=== PATIENT | female | born 1985 | race Hispanic/Latino ===

== ENCOUNTER 2019-01-14 20:51 | Emergency (ER) | payer OTHER, SELFPAY ==
--- NOTE | 2019-01-14 21:17 | EDPHYS ---
Physician Documentation [facility] Name: Shyla Olea Age: 33 yrs Sex: Female : 1985 Arrival Date: 01/14/2019 Time: 20:53 Bed 24 Private MD: ED Physician Antoni Ridley HPI: 01/14 21:18 This 33 yrs old Female presents to ER via Ambulatory with complaints of Rash. jr8 21:18 The patient's rash thought to be caused by an unknown cause. The rash is located on the jr8 abdomen. The rash can be described as papular, pustular, raised. Onset: The symptoms/episode began/occurred 01/10. Associated signs and symptoms: Pertinent negatives: fever, itching, nausea, swelling of lips, swelling of throat, swelling of tongue, vomiting, wheezing. Severity of symptoms: At their worst the symptoms were mild in the emergency department the symptoms are unchanged. 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 - Social history:: Smoking status: Patient/guardian denies using tobacco. - Ebola Screening: : No symptoms or risks identified at this time. ROS: 21:19 Constitutional: Negative for fever, chills, and weight loss, Eyes: Negative for injury, jr8 pain, redness, and discharge, ENT: Negative for injury, pain, and discharge, Neck: Negative for injury, pain, and swelling, Cardiovascular: Negative for chest pain, palpitations, and edema, Respiratory: Negative for shortness of breath, cough, wheezing, and pleuritic chest pain, Abdomen/GI: Negative for abdominal pain, nausea, vomiting, diarrhea, and constipation, Back: Negative for injury and pain, MS/Extremity: Negative for injury and deformity, Neuro: Negative for headache, weakness, numbness, tingling, and seizure. 21:19 Skin: Positive for pustules, rash, of the abdomen. Exam: 21:19 Constitutional: This is a well developed, well nourished patient who is awake, alert, jr8 and in no acute distress. Head/Face: Normocephalic, atraumatic. Eyes: Pupils equal round and reactive to light, extra-ocular motions intact. Lids and lashes normal. Conjunctiva and sclera are non-icteric and not injected. Cornea within normal limits. Periorbital areas with no swelling, redness, or edema. ENT: Nares patent. No nasal discharge, no septal abnormalities noted. Tympanic membranes are normal and external auditory canals are clear. Oropharynx with no redness, swelling, or masses, exudates, or evidence of obstruction, uvula midline. Mucous membranes moist. Neck: Trachea midline, no thyromegaly or masses palpated, and no cervical lymphadenopathy. Supple, full range of motion without nuchal rigidity, or vertebral point tenderness. No Meningismus. Chest/axilla: Normal chest wall appearance and motion. Nontender with no deformity. No lesions are appreciated. Cardiovascular: Regular rate and rhythm with a normal S1 and S2. No gallops, murmurs, or rubs. Normal PMI, no JVD. No pulse deficits. Respiratory: Lungs have equal breath sounds bilaterally, clear to auscultationNo rales, rhonchi or wheezes noted. No increased work of breathing, no retractions or nasal flaring. Abdomen/GI: Soft, non-tender, with normal bowel sounds. No distension or tympany. No guarding or rebound. No evidence of tenderness throughout. MS/ Extremity: Pulses equal, no cyanosis. Neurovascular intact. Full, normal range of motion. 21:19 Skin: rash a mild rash is noted, rash can be described as nonspecific, papular, pustular, raised, blanchable , on the abdomen. Vital Signs: 21:02 BP 128 / 70; Pulse 70; Resp 16; Temp 97.2(TE); Pulse Ox 98% on R/A; Weight 81.65 kg; lp1 Height 5 ft. 6 in. (167.64 cm); Pain 0/10; 21:02 Body Mass Index 29.05 (81.65 kg, 167.64 cm) lp1 MDM: 21:01 Patient medically screened. 8 21:14 Data reviewed: vital signs, nurses notes, and as a result, I will discharge patient. jr8 Data interpreted: Pulse oximetry: on room air is 100 %. Interpretation: normal. Counseling: I had a detailed discussion with the patient and/or guardian regarding: the historical points, exam findings, and any diagnostic results supporting the discharge/admit diagnosis, to return to the emergency department if symptoms worsen or persist or if there are any questions or concerns that arise at home. ED course: Pt rash is blanchable, small papules, pt is non-toxic without constitutional symptoms. Will trial abx and steroids and have pt FU with derm. Administered Medications: No medications were administered Disposition: 22:20 Co-signature as Attending Physician, Antoni Ridley MD. rn Disposition: 01/14/19 21:17 Discharged to Home. Impression: Rash and other nonspecific skin eruption. - Condition is Stable. - Discharge Instructions: Rash, Rash, Cemk-se-Ounm. - Prescriptions for Medrol (Jim) 4 mg Oral Tablets, Dose Pack - take 1 tablet by ORAL route as directed - follow package instructions; 1 packet. Bactrim DS 800- 160 mg Oral Tablet - take 1 tablet by ORAL route every 12 hours for 7 days; 14 tablet. - Medication Reconciliation Form, Thank You Letter, Antibiotic Education form. - Follow up: Private Physician; When: 5 - 6 days; Reason: Recheck today's complaints, Re-evaluation by your physician. - Problem is new. - Symptoms are unchanged. Signatures: Antoni Ridley MD MD rn Pena, Laura RN RN lp1 Marcin Carvajal PA PA jr8 Rashid Heart RN RN rv Corrections: (The following items were deleted from the chart) 21:37 21:17 01/14/2019 21:17 Discharged to Home. Impression: Rash and other nonspecific skin rv eruption. Condition is Stable. Forms are Medication Reconciliation Form, Thank You Letter, Antibiotic Education, Prescription Opioid Use. Follow up: Private Physician; When: 5 - 6 days; Reason: Recheck today's complaints, Re-evaluation by your physician. Problem is new. Symptoms are unchanged. jr8
--- NOTE | 2019-01-14 21:17 | ER ---
Nurse's Notes [facility] Name: Shyla Olea Age: 33 yrs Sex: Female : 1985 Arrival Date: 01/14/2019 Time: 20:53 Bed 24 Private MD: Diagnosis: Rash and other nonspecific skin eruption Presentation: 01/14 21:01 Presenting complaint: Patient states: Rash to general body, began Sunday on abdomen and lp1 has spread; States burning sensation all over; no relief with Benadryl. Transition of care: patient was not received from another setting of care. Onset of symptoms was January 14, 2019. Risk Assessment: Do you want to hurt yourself or someone else? Patient reports no desire to harm self or others. Initial Sepsis Screen: Does the patient meet any 2 criteria? No. Patient's initial sepsis screen is negative. Does the patient have a suspected source of infection? No. Patient's initial sepsis screen is negative. Care prior to arrival: None. 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 - Social history:: Smoking status: Patient/guardian denies using tobacco. - Ebola Screening: : No symptoms or risks identified at this time. Screenin:03 Abuse screen: Denies threats or abuse. Denies injuries from another. Nutritional lp1 screening: No deficits noted. Tuberculosis screening: No symptoms or risk factors identified. Fall Risk None identified. Assessment: 21:36 General: Appears in no apparent distress. comfortable, Behavior is calm, cooperative. rv Pain: Denies pain. Neuro: Level of Consciousness is awake, alert, obeys commands, Oriented to person, place, time, situation. Cardiovascular: Patient's skin is warm and dry. Respiratory: Airway is patent. GI: No signs and/or symptoms were reported involving the gastrointestinal system. : No signs and/or symptoms were reported regarding the genitourinary system. EENT: No signs and/or symptoms were reported regarding the EENT system. Derm: Rash noted that is red, on abdomen. Vital Signs: 21:02 BP 128 / 70; Pulse 70; Resp 16; Temp 97.2(TE); Pulse Ox 98% on R/A; Weight 81.65 kg; lp1 Height 5 ft. 6 in. (167.64 cm); Pain 0/10; 21:02 Body Mass Index 29.05 (81.65 kg, 167.64 cm) lp1 ED Course: 20:53 Patient arrived in ED. cl3 21:01 Marcin Carvajal PA is PHCP. jr8 21:01 Antoni Ridley MD is Attending Physician. jr8 21:02 Triage completed. lp1 21:02 Arm band placed on. lp1 21:03 Patient has correct armband on for positive identification. lp1 21:35 Rashid Heart RN is Primary Nurse. rv 21:36 No provider procedures requiring assistance completed. Patient did not have IV access rv during this emergency room visit. Administered Medications: No medications were administered Outcome: 21:17 Discharge ordered by . jr8 21:37 Discharged to home ambulatory. rv 21:37 Condition: good 21:37 Discharge instructions given to patient, Instructed on discharge instructions, follow up and referral plans. medication usage, Demonstrated understanding of instructions, follow-up care, medications, Prescriptions given X 2. 21:37 Patient left the ED. rv Signatures: Jania Coffey RN RN lp1 Marcin Carvajal PA PA jr8 Rashid Heart RN RN rv Lewis, Charde cl3
[2019-01-14 23:59] VITALS: BP 128/70; TEMP 97.2; O2SAT 98
== END 2019-01-14 21:37 | disposition home or self-care (01) ==
LOC: ER 20:51
DX: R21 Rash and other nonspecific skin eruption (principal); Z88.1 Allergy status to other antibiotic agents
CPT/HCPCS: 99282

== ENCOUNTER 2019-02-22 00:07 | Emergency (ER) | payer OTHER ==
--- OUTSIDE RECORDS SUMMARY | 2019-02-22 00:10 | XMS REPORT ---
:1985 [facility] Address [address] [place] [address] Dr. Stephens [address] [place] [id number] Care Team Providers Name Role Phone Unavailable Unavailable Unavailable Problems This patient has no known problems. Allergies, Adverse Reactions, Alerts This patient has no known allergies or adverse reactions. Medications This patient has no known medications.
[2019-02-22 00:49] LABS: Basophils % 0.5 % (0-1.3); Lymphocytes % 23.9 % (15.3-44.8); MPV 9.9 fL (7.6-11.3)
[2019-02-22 00:55] LABS: Urine Blood 3+ (NEG); Urine Glucose NEGATIVE (NEG); Urine Protein 2+ (NEG); Urine pH 5.5 (5.0-7.0)
[2019-02-22 00:56] LABS: Urine Bacteria >50 /HPF (<20); Urine Culture Reflex Order REFLEXED; Urine RBC TNTC /HPF (NONE SEEN)
[2019-02-22 01:04] LABS: Potassium 3.7 mmol/L (3.5-5.1)
[2019-02-22] MEDS ORDERED: NA CHLORIDE 0.9% 1,000 ML ONE (02:01)
[2019-02-22] MEDS ORDERED: CEFTRIAXONE/SWI 1gm 1 GM/10 ML SYR ONE (02:01)
--- NOTE | 2019-02-22 02:27 | ER ---
Nurse's Notes [facility] Name: Shyla Olea Age: 33 yrs Sex: Female : 1985 Arrival Date: 02/22/2019 Time: 00:12 Bed 5 Private MD: Diagnosis: Urinary tract infection, site not specified Presentation: 02/22 00:23 Presenting complaint: Patient states: she has had UTI x 3 weeks and now has blood in bb her urine with right lower back pain. Transition of care: patient was not received from another setting of care. Onset of symptoms was December 2018. Risk Assessment: Do you want to hurt yourself or someone else? Patient reports no desire to harm self or others. Initial Sepsis Screen: Does the patient meet any 2 criteria? No. Patient's initial sepsis screen is negative. Does the patient have a suspected source of infection? No. Patient's initial sepsis screen is negative. Care prior to arrival: None. 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 - Social history:: Smoking status: Patient/guardian denies using tobacco. - Ebola Screening: : No symptoms or risks identified at this time. Screenin:30 Abuse screen: Denies threats or abuse. Nutritional screening: No deficits noted. jd3 Tuberculosis screening: No symptoms or risk factors identified. Fall Risk Ambulatory Aid- None/Bed Rest/Nurse Assist (0 pts). Gait- Normal/Bed Rest/Wheelchair (0 pts) Mental Status- Oriented to own ability (0 pts). Total Burciaga Fall Scale indicates No Risk (0-24 pts). Assessment: 00:27 General: Appears in no apparent distress. uncomfortable, Behavior is calm, cooperative, jd3 appropriate for age. Pain: Complains of pain in groin Quality of pain is described as burning. Neuro: Level of Consciousness is awake, alert, obeys commands, Oriented to person, place, time, situation. Cardiovascular: Capillary refill Patient's skin is warm and dry. Respiratory: Airway is patent Respiratory effort is even, unlabored, Respiratory pattern is regular, symmetrical. GI: No signs and/or symptoms were reported involving the gastrointestinal system. : Reports burning with urination, blood noted in urine. EENT: No signs and/or symptoms were reported regarding the EENT system. Derm: Skin is intact, Skin is dry, Skin is normal, Skin temperature is warm. Musculoskeletal: Circulation, motion, and sensation intact. Range of motion: intact in all extremities. 01:26 Reassessment: Patient appears in no apparent distress at this time. No changes from jd3 previously documented assessment. Patient and/or family updated on plan of care and expected duration. Pain level reassessed. Patient is alert, oriented x 3, equal unlabored respirations, skin warm/dry/pink. 02:38 Reassessment: Patient and/or family updated on plan of care and expected duration. Pain ea level reassessed. Patient is alert, oriented x 3, equal unlabored respirations, skin warm/dry/pink. Discharge instruction given to patient, verbalized the understanding of instruction. Pt left ED ambulatory tolerating well. Vital Signs: 00:31 BP 138 / 79; Pulse 62; Resp 16 S; Temp 98(O); Pulse Ox 100% on R/A; Weight 86.18 kg bb (R); Height 5 ft. 6 in. (167.64 cm) (R); Pain 5/10; 02:30 BP 114 / 77; Pulse 76; Resp 18; Temp 97.6; Pulse Ox 100% on R/A; ea 00:31 Body Mass Index 30.67 (86.18 kg, 167.64 cm) bb ED Course: 00:12 Patient arrived in ED. cf2 00:15 Reny Martinez FNP-C is PHCP. kb 00:15 Candido Malagon MD is Attending Physician. kb 00:24 Triage completed. bb 00:27 Ryan Rod RN is Primary Nurse. jd3 00:30 Patient has correct armband on for positive identification. Bed in low position. Call jd3 light in reach. Side rails up X 1. Adult w/ patient. 00:31 Arm band placed on. jd3 00:46 Inserted saline lock: 20 gauge in right antecubital area, using aseptic technique. ea 01:55 CT Abd/Pelvis - IV Contrast Only In Process Unspecified. EDMS 02:38 No provider procedures requiring assistance completed. IV discontinued, intact, ea bleeding controlled, No redness/swelling at site. Pressure dressing applied. Administered Medications: 02:06 Drug: Rocephin 1 grams Route: IV; Rate: calculated rate; Site: right antecubital; jd3 02:15 Follow up: Response: No adverse reaction; IV Status: Completed infusion ea 02:06 Drug: NS 0.9% 1000 ml Route: IV; Rate: 1000 ml; Site: right antecubital; jd3 02:30 Follow up: Response: No adverse reaction; IV Status: Completed infusion; IV Intake: ea 1000ml Intake: 02:30 IV: 1000ml; Total: 1000ml. ea Outcome: 02:26 Discharge ordered by . kb 02:38 Discharged to home ambulatory, with family. ea 02:38 Condition: stable 02:38 Discharge instructions given to patient, Instructed on discharge instructions, follow up and referral plans. medication usage, Demonstrated understanding of instructions, follow-up care, medications, Prescriptions given X 1. 02:41 Patient left the ED. ea Signatures: Dispatcher [employer] EDMS Reny Martinez, WATCH REPAIR TECHNICIAN-C WATCH REPAIR TECHNICIAN-Jaimie Sanders, RN RN Katherin Gerber RN RN ea Davies, Jonathon, RN RN jd3 Frazier, Celesta cf2
--- NOTE | 2019-02-22 02:27 | EDPHYS ---
Physician Documentation [facility] Name: Shyla Olea Age: 33 yrs Sex: Female : 1985 Arrival Date: 02/22/2019 Time: 00:12 Bed 5 Private MD: ED Physician Candido Malagon HPI: 02/22 01:03 This 33 yrs old Female presents to ER via Ambulatory with complaints of kb Urinary Problem. 01:03 The patient presents with urinary symptoms, dysuria, frequency, hematuria. Onset: The kb symptoms/episode began/occurred 3 week(s) ago. Modifying factors: The symptoms are alleviated by nothing, the symptoms are aggravated by urinating. Associated signs and symptoms: Pertinent positives: dysuria, fever, hematuria, urinary frequency. Severity of symptoms: At their worst the symptoms were moderate, in the emergency department the symptoms are unchanged. The patient has experienced similar episodes in the past. The patient has not recently seen a physician. 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 - Social history:: Smoking status: Patient/guardian denies using tobacco. - Ebola Screening: : No symptoms or risks identified at this time. ROS: 01:02 ENT: Negative for injury, pain, and discharge, Neck: Negative for injury, pain, and kb swelling, Cardiovascular: Negative for chest pain, palpitations, and edema, Respiratory: Negative for shortness of breath, cough, wheezing, and pleuritic chest pain, Abdomen/GI: Negative for abdominal pain, nausea, vomiting, diarrhea, and constipation, Back: Negative for injury and pain, MS/Extremity: Negative for injury and deformity, Skin: Negative for injury, rash, and discoloration, Neuro: Negative for headache, weakness, numbness, tingling, and seizure. 01:02 Constitutional: Positive for fever. 01:02 : Positive for urinary symptoms, flank pain, urinary frequency, hematuria, burning with urination. Exam: 01:02 Constitutional: This is a well developed, well nourished patient who is awake, alert, kb and in no acute distress. Head/Face: Normocephalic, atraumatic. ENT: Nares patent. No nasal discharge, no septal abnormalities noted. Tympanic membranes are normal and external auditory canals are clear. Oropharynx with no redness, swelling, or masses, exudates, or evidence of obstruction, uvula midline. Mucous membranes moist. Neck: Trachea midline, no thyromegaly or masses palpated, and no cervical lymphadenopathy. Supple, full range of motion without nuchal rigidity, or vertebral point tenderness. No Meningismus. Chest/axilla: Normal chest wall appearance and motion. Nontender with no deformity. No lesions are appreciated. Cardiovascular: Regular rate and rhythm with a normal S1 and S2. No gallops, murmurs, or rubs. Normal PMI, no JVD. No pulse deficits. Respiratory: Lungs have equal breath sounds bilaterally, clear to auscultation and percussion. No rales, rhonchi or wheezes noted. No increased work of breathing, no retractions or nasal flaring. Abdomen/GI: Soft, non-tender, with normal bowel sounds. No distension or tympany. No guarding or rebound. No evidence of tenderness throughout. Skin: Warm, dry with normal turgor. Normal color with no rashes, no lesions, and no evidence of cellulitis. MS/ Extremity: Pulses equal, no cyanosis. Neurovascular intact. Full, normal range of motion. Neuro: Awake and alert, GCS 15, oriented to person, place, time, and situation. Cranial nerves II-XII grossly intact. Motor strength 5/5 in all extremities. Sensory grossly intact. Cerebellar exam normal. Normal gait. 01:02 Back: CVA tenderness, that is moderate, is noted on the right. Vital Signs: 00:31 BP 138 / 79; Pulse 62; Resp 16 S; Temp 98(O); Pulse Ox 100% on R/A; Weight 86.18 kg bb (R); Height 5 ft. 6 in. (167.64 cm) (R); Pain 5/10; 02:30 BP 114 / 77; Pulse 76; Resp 18; Temp 97.6; Pulse Ox 100% on R/A; ea 00:31 Body Mass Index 30.67 (86.18 kg, 167.64 cm) bb MDM: 00:19 Patient medically screened. kb 01:02 Data reviewed: vital signs, nurses notes. Data interpreted: Pulse oximetry: on room air kb is 100 %. Interpretation: normal. 02:26 Counseling: I had a detailed discussion with the patient and/or guardian regarding: the kb historical points, exam findings, and any diagnostic results supporting the discharge/admit diagnosis, lab results, radiology results, the need for outpatient follow up, a family practitioner, to return to the emergency department if symptoms worsen or persist or if there are any questions or concerns that arise at home. 02/22 00:27 Order name: CBC with Diff; Complete Time: 00:54 kb 02/22 00:27 Order name: Basic Metabolic Panel; Complete Time: 01:06 kb 02/22 00:27 Order name: Urine Microscopic Only; Complete Time: 00:58 kb 02/22 00:48 Order name: Urine Dipstick--Ancillary (enter results); Complete Time: 00:58 ar5 02/22 00:48 Order name: Urine --Ancillary (enter results); Complete Time: 00:58 ar5 02/22 00:58 Order name: Urine Culture EDMS 02/22 00:27 Order name: IV Start; Complete Time: 00:46 kb 02/22 00:27 Order name: Urine Test (obtain specimen); Complete Time: 01:26 kb 02/22 00:27 Order name: Urine Dipstick-Ancillary (obtain specimen); Complete Time: 00:46 kb 02/22 00:27 Order name: CT Abd/Pelvis - IV Contrast Only kb Administered Medications: 02:06 Drug: Rocephin 1 grams Route: IV; Rate: calculated rate; Site: right antecubital; jd3 02:15 Follow up: Response: No adverse reaction; IV Status: Completed infusion ea 02:06 Drug: NS 0.9% 1000 ml Route: IV; Rate: 1000 ml; Site: right antecubital; jd3 02:30 Follow up: Response: No adverse reaction; IV Status: Completed infusion; IV Intake: ea 1000ml Disposition: 09:01 Co-signature as Attending Physician, Candido Malagon MD I agree with the assessment and miguel ángel plan of care. Disposition: 02/22/19 02:26 Discharged to Home. Impression: Urinary tract infection, site not specified. - Condition is Stable. - Discharge Instructions: Urinary Tract Infection, Adult, [id number]. - Prescriptions for Macrobid 100 mg Oral Capsule - take 1 capsule by ORAL route every 12 hours for 10 days; 20 capsule. - Medication Reconciliation Form, Thank You Letter, Antibiotic Education, Prescription Opioid Use form. - Follow up: Emergency Department; When: As needed; Reason: Worsening of condition. Follow up: Private Physician; When: 2 - 3 days; Reason: Recheck today's complaints, Continuance of care, Re-evaluation by your physician. Signatures: Dispatcher [employer] EDReny Waggoner, DIRECTOR FEDERAL-C DIRECTOR FEDERAL-Ckb Candido Malagon MD MD cha Ballard, Brenda, RN RN Katherin Gerber, RN RN Ryan Pascal RN RN jd3 Corrections: (The following items were deleted from the chart) 02:41 02:26 02/22/2019 02:26 Discharged to Home. Impression: Urinary tract infection, site ea not specified. Condition is Stable. Forms are Medication Reconciliation Form, Thank You Letter, Antibiotic Education, Prescription Opioid Use. Follow up: Emergency Department; When: As needed; Reason: Worsening of condition. Follow up: Private Physician; When: 2 - 3 days; Reason: Recheck today's complaints, Continuance of care, Re-evaluation by your physician. kb
[2019-02-22 03:01] VITALS: O2SAT 100
[2019-02-22 03:03] VITALS: BP 114/77; TEMP 97.6
--- NOTE | 2019-02-24 14:01 | RAD REPORT ---
EXAM DESCRIPTION: CT Abdomen and Pelvis With Intravenous Contrast CLINICAL HISTORY: The patient is 33 years old and is Female; right lower back pain TECHNIQUE: Axial computed tomography images of the abdomen and pelvis with intravenous contrast. S agittal and coronal reformatted images were created and reviewed. This CT exam was performed using one or more of the following dose reduction techniques: automated exposure control, adjustment of t he mA and/or kV according to patient size, and/or use of iterative reconstruction technique. COMPARISON: No relevant prior studies available. FINDINGS: LUNG BASES: Unremarkable. No mass. No consolidation. ABDOMEN: LIVER: Unremarkable. No mass. GALLBLADDER AND BILE DUCTS: No calcified stones. No ductal dilation. PANCREAS: No ductal dilation. No mass. SPLEEN: Unremarkable. ADRENALS: Unremarkable. No mass. KIDNEYS AND URETERS: Unremarkable. The kidneys enhance symmetrically. No obstructing renal or ur eteral calculus is seen. No hydronephrosis or hydroureter. No perinephric fluid or stranding. STOMACH AND BOWEL: The stomach is minimally fluid filled. The small bowel is relatively normal i n caliber. Stool is present throughout colon. There is no mucosal thickening or evidence of bowel obs truction. PELVIS: APPENDIX: The appendix is normal in caliber without surrounding inflammation. BLADDER: The bladder is not well distended. REPRODUCTIVE: Evidence of tubal ligation is noted. A dominant 2.4 cm left ovarian cyst is pres ent. No follow-up imaging is recommended. The uterus and right ovary are normal. ABDOMEN and PELVIS: INTRAPERITONEAL SPACE: A small amount of free fluid is present within the pelvis which is likely physiologic. No free air. BONES/JOINTS: No acute fracture. SOFT TISSUES: The soft tissues are normal. VASCULATURE: Unremarkable. No abdominal aortic aneurysm. LYMPH NODES: Unremarkable. No enlarged lymph nodes. IMPRESSION: No acute findings on this contrasted CT of the abdomen and pelvis to explain the patient 's symptoms. Electronically signed by: Zo Longoria MD 02/22/2019 2:15 AM DRYWALL FOREMAN Due to temporary technical issues with the PACS/Fluency reporting system, reports are being signed by the in house radiologist as a courtesy to ensure prompt reporting. The interpreting radiologist is f ully responsible for the content of the report.
== END 2019-02-22 02:41 | disposition home or self-care (01) ==
LOC: ER 00:07
DX: N39.0 Urinary tract infection, site not specified (principal); Z88.1 Allergy status to other antibiotic agents
CPT/HCPCS: 87088; 85025; 87086; 80048; 36415; 81025; 74177; 96374; 99284; Q9967; J0696; J7030; 81003; 81015

== ENCOUNTER 2020-02-04 07:53 | Emergency (ER) | payer OTHER ==
--- OUTSIDE RECORDS SUMMARY | 2020-02-04 07:55 | XMS REPORT | Clinical Summary ---
:1985 Demographics Phone Unavailable Preferred Language Unknown Marital Status Unknown Anabaptism Affiliation Unknown Race Unknown Ethnic Group Unknown Author Organization [facility] Address [address] [place] [address] Care Team Providers Name Role Phone Unavailable Primary Care Provider Unavailable Allergies Active Allergy Reactions Severity Noted Date Comments Amoxicillin-Pot Clavulanate Hives 02/17/2014 Medications No known medications Active Problems Not on file Social History Tobacco Use Types Packs/Day Years Used Date Never Smoker Alcohol Use Drinks/Week oz/Week Comments No Sex Assigned at Date Recorded Not on file Last Filed Vital Signs Not on file Plan of Treatment Not on file Results Not on fileafter 02/03/2019
--- OUTSIDE RECORDS SUMMARY | 2020-02-04 07:55 | XMS REPORT | Continuity of Care Document ---
:1985 Author Organization [facility] t Address [facility] [place] [address] Care Team Providers Name Role Phone Unavailable Unavailable Unavailable Problems This patient has no known problems. Allergies, Adverse Reactions, Alerts Allergy Allergy Status Severity Reaction(s) Onset Inactive Treating Comm ents Source Name Type Date Date Clinician Amoxicil Drug Active Hives 2013-04 [facility] grecia-Pot Allergy 04-19 [facility] Social History Social Habit Start Date Stop Date Quantity Comments Source Sex Assigned At [facility] Alcohol intake 2014-02-17 2014-02-17 Current [facility] es - 00:00:00 00:00:00 non-drinker of Medical Ce nter alcohol (finding) Smoking Status Start Date Stop Date Source Never smoker [facility] Medications This patient has no known medications. Procedures This patient has no known procedures. Results This patient has no known results.
[2020-02-04] MEDS ORDERED: MEPERIDINE HCL 25 MG/ML SYR ONE (08:55)
[2020-02-04] MEDS ORDERED: ONDANSETRON 4 MG/2 ML VIAL ONE (08:55)
[2020-02-04] MEDS ORDERED: NA CHLORIDE 0.9% 1,000 ML ONE (08:56)
[2020-02-04] MEDS ORDERED: dexAMETHasone 4 MG/ML VIAL ONE (08:56)
--- NOTE | 2020-02-04 09:25 | ER ---
Nurse's Notes [facility] Name: Shyla Olea Age: 34 yrs Sex: Female : 1985 Arrival Date: 02/04/2020 Time: 07:55 Bed 19 Private MD: Pedro Haywood R Diagnosis: Migraine Presentation: 02/03 08:05 Chief complaint: Patient states: Migraine x 2 days. Coronavirus screen: Client denies ss travel out of the [place] in the last 14 days. Ebola Screen: Patient denies exposure to infectious person. Patient denies travel to an Ebola-affected area in the 21 days before illness onset. Initial Sepsis Screen: Does the patient meet any 2 criteria? No. Patient's initial sepsis screen is negative. Does the patient have a suspected source of infection? No. Patient's initial sepsis screen is negative. Risk Assessment: Do you want to hurt yourself or someone else? Patient reports no desire to harm self or others. Onset of symptoms was February 02, 2020. 08:05 Method Of Arrival: Ambulatory ss 08:05 Acuity: BILL 3 ss Triage Assessment: 08:05 Headache History: The patient has had previous headaches and this one is similar to bp previous episodes. General: Appears in no apparent distress. uncomfortable, Behavior is cooperative, appropriate for age, anxious. Pain: Complains of pain in right congregation and right side of forehead Also complains of photophobia. EENT: No deficits noted. Neuro: Level of Consciousness is awake, alert, obeys commands, Oriented to Appropriate for age. Cardiovascular: No deficits noted. Respiratory: No deficits noted. GI: No signs and/or symptoms were reported involving the gastrointestinal system. : No signs and/or symptoms were reported regarding the genitourinary system. Derm: No deficits noted. Musculoskeletal: No deficits noted. 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 - Social history:: Smoking status: Patient denies any tobacco usage or history of. - Family history:: not pertinent. - Hospitalizations: : No recent hospitalization is reported. Screenin:08 Abuse screen: Denies threats or abuse. Denies injuries from another. Nutritional ss screening: No deficits noted. Tuberculosis screening: Never had TB. Fall Risk None identified. Assessment: 08:08 General: Appears uncomfortable, Behavior is calm, cooperative, Denies fever, feeling ss ill, fatigue, chills. Pain: Complains of pain in right side of forehead and right congregation Pain currently is 7 out of 10 on a pain scale. Quality of pain is described as aching, throbbing, Pain began 2-3 days ago. Is continuous. Neuro: Level of Consciousness is awake, alert, obeys commands, Oriented to person, place, time, situation, Speech is normal, Facial symmetry appears normal, Pupils are PERRLA. Neuro: Reports difficulty focusing at times. . Cardiovascular: Capillary refill < 3 seconds is brisk in bilateral fingers. Respiratory: Airway is patent Respiratory effort is even, unlabored, Respiratory pattern is regular, symmetrical. GI: Reports intermittent nausea x 2 days. : No signs and/or symptoms were reported regarding the genitourinary system. Derm: Skin is intact, is healthy with good turgor, Skin is dry, Skin is pink, warm \T\ dry. normal. Musculoskeletal: Circulation, motion, and sensation intact. Range of motion: intact in all extremities. 08:30 Reassessment: RECD REPORT FROM CANDY DURAND. 34YO HF P/W POLO, H/O MIGRAINES. PT bp NON-COMPLIANT WITH NEURO F/U. Neuro: Level of Consciousness is awake, alert, obeys commands, Oriented to Appropriate for age Speech is normal, Facial symmetry appears normal, Reports headache in right frontal area, photophobia. 09:42 Reassessment: PT D/C HOME AMBULATORY WITH FAMILY, DX WITH MIGRAINE POLO Patient states bp feeling better. Patient states symptoms have improved. Vital Signs: 08:05 BP 116 / 81; Pulse 76; Resp 14; Temp 97.6(TE); Pulse Ox 99% on R/A; Weight 89.81 kg; ss Height 5 ft. 6 in. (167.64 cm); Pain 7/10; 09:00 BP 98 / 67; Pulse 77; Resp 17; Pulse Ox 96% ; bp 09:33 BP 100 / 58; Pulse 61; Resp 16; Pulse Ox 97% ; bp 08:05 Body Mass Index 31.96 (89.81 kg, 167.64 cm) ss Spooner Coma Score: 09:23 Eye Response: spontaneous(4). Verbal Response: oriented(5). Motor Response: obeys rn commands(6). Total: 15. ED Course: 07:55 Patient arrived in ED. as 07:55 Pedro Haywood MD is Private Physician. as 08:06 Triage completed. ss 08:08 Arm band placed on left wrist. ss 08:08 Patient has correct armband on for positive identification. Bed in low position. Call ss light in reach. 08:10 Antoni Ridley MD is Attending Physician. rn 08:38 Keo Morris RN is Primary Nurse. bp 08:38 Keo Morris RN is Primary Nurse. bp 08:45 Inserted saline lock: 22 gauge in right antecubital area, using aseptic technique. bp 09:24 Julian Grover MD is Referral Physician. rn 09:42 No provider procedures requiring assistance completed. IV discontinued, intact, bp bleeding controlled, No redness/swelling at site. Pressure dressing applied. Administered Medications: 08:45 Drug: NS 0.9% 1000 ml Route: IV; Rate: 1000 ml; Site: right antecubital; bp 09:43 Follow up: IV Status: Completed infusion; IV Intake: 1000ml bp 08:45 Drug: Decadron - Dexamethasone 10 mg Route: IVP; Site: right antecubital; bp 09:43 Follow up: Response: No adverse reaction; Pain is decreased bp 08:45 Drug: Demerol 25 mg Route: IVP; Site: right antecubital; bp 09:43 Follow up: Response: No adverse reaction; Pain is decreased bp 08:45 Drug: Zofran (Ondansetron) 4 mg Route: IVP; Site: right antecubital; bp 09:44 Follow up: Response: No adverse reaction; Pain is decreased bp Intake: 09:43 IV: 1000ml; Total: 1000ml. bp Outcome: 09:24 Discharge ordered by . rn 09:42 Discharged to home ambulatory, with family. bp 09:42 Condition: stable 09:42 Discharge instructions given to patient, Instructed on discharge instructions, follow up and referral plans. medication usage, Demonstrated understanding of instructions, follow-up care, medications, Prescriptions given X 2. 09:44 Patient left the ED. bp Signatures: Amrita Leon Roman, MD MD rn Candy Flowers RN RN ss Keo Morris RN RN bp
--- NOTE | 2020-02-04 09:25 | EDPHYS ---
Physician Documentation [facility] Name: Shyla Olea Age: 34 yrs Sex: Female : 1985 Arrival Date: 02/04/2020 Time: 07:55 Bed 19 Private MD: Pedro Haywood R ED Physician Antoni Ridley HPI: 02/03 08:21 This 34 yrs old Female presents to ER via Ambulatory with complaints of rn Headache. 08:21 The patient complains of pain to the top of head. The patient describes the headache as rn aching. Onset: The symptoms/episode began/occurred 2 day(s) ago. Severity of symptoms: At its worst the pain was moderate, "similar to past headaches". Headache History: The patient has had previous headaches and this one is similar to previous episodes. The symptoms are alleviated by nothing. the symptoms are aggravated by lights, noise, stress. The patient has experienced similar episodes in the past. Reports headache, migraine, similar to previous migraines, sensitive to light/sounds/stress. Tried OTC meds and not helping. No atypical or irregular symptoms for her compared to previousmigraines. No fever/neck stiffness.. 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 - Social history:: Smoking status: Patient denies any tobacco usage or history of. - Family history:: not pertinent. - Hospitalizations: : No recent hospitalization is reported. ROS: 08:21 Constitutional: Negative for fever, chills, and weight loss, Eyes: Negative for injury, rn pain, redness, and discharge, Neck: Negative for injury, pain, and swelling, Cardiovascular: Negative for chest pain, palpitations, and edema, Respiratory: Negative for shortness of breath, cough, wheezing, and pleuritic chest pain, Abdomen/GI: Negative for abdominal pain, diarrhea, and constipation, MS/Extremity: Negative for injury and deformity, Skin: Negative for injury, rash, and discoloration, Neuro: Negative for weakness, numbness, tingling, and seizure. Exam: 08:21 Constitutional: This is a well developed, well nourished patient who is awake, alert, rn womens health to room without assistance or difficulty Head/Face: Normocephalic, atraumatic. Neck: Supple, full range of motion without nuchal rigidity. No Meningismus. Cardiovascular: Regular rate and rhythm. No pulse deficits. Respiratory: No increased work of breathing, no retractions or nasal flaring. Abdomen/GI: soft, non-tender Skin: Warm, dry MS/ Extremity: Pulses equal, no cyanosis. Neurovascular intact. Full, normal range of motion. Equal circumference. Neuro: Awake and alert, GCS 15 Vital Signs: 08:05 BP 116 / 81; Pulse 76; Resp 14; Temp 97.6(TE); Pulse Ox 99% on R/A; Weight 89.81 kg; ss Height 5 ft. 6 in. (167.64 cm); Pain 7/10; 09:00 BP 98 / 67; Pulse 77; Resp 17; Pulse Ox 96% ; bp 09:33 BP 100 / 58; Pulse 61; Resp 16; Pulse Ox 97% ; bp 08:05 Body Mass Index 31.96 (89.81 kg, 167.64 cm) ss Surinder Coma Score: 09:23 Eye Response: spontaneous(4). Verbal Response: oriented(5). Motor Response: obeys rn commands(6). Total: 15. MDM: 08:11 Patient medically screened. rn 09:23 Differential diagnosis: migraine, tension headache, vasomotor headache. Data reviewed: rn vital signs, nurses notes, old medical records, and as a result, I will discharge patient. Counseling: I had a detailed discussion with the patient and/or guardian regarding: the historical points, exam findings, and any diagnostic results supporting the discharge/admit diagnosis, the need for outpatient follow up, to return to the emergency department if symptoms worsen or persist or if there are any questions or concerns that arise at home. Response to treatment: the patient's symptoms have markedly improved after treatment, patient is well hydrated. sleeping comfortably, stable vitals, mother reports "feels much better". , and as a result, I will discharge patient. Special discussion: I discussed with the patient/guardian in detail that at this point there is no indication for admission to the hospital. It is understood, however, that if the symptoms persist or worsen the patient needs to return immediately for re-evaluation. Based on the history and exam findings, there is no indication for further emergent testing or inpatient evaluation. I discussed with the patient/guardian the need to see the neurologist for further evaluation of the symptoms. 02/03 08:21 Order name: IV Start; Complete Time: 08:57 rn Administered Medications: 08:45 Drug: NS 0.9% 1000 ml Route: IV; Rate: 1000 ml; Site: right antecubital; bp 09:43 Follow up: IV Status: Completed infusion; IV Intake: 1000ml bp 08:45 Drug: Decadron - Dexamethasone 10 mg Route: IVP; Site: right antecubital; bp 09:43 Follow up: Response: No adverse reaction; Pain is decreased bp 08:45 Drug: Demerol 25 mg Route: IVP; Site: right antecubital; bp 09:43 Follow up: Response: No adverse reaction; Pain is decreased bp 08:45 Drug: Zofran (Ondansetron) 4 mg Route: IVP; Site: right antecubital; bp 09:44 Follow up: Response: No adverse reaction; Pain is decreased bp Disposition: 02/04/20 09:24 Discharged to Home. Impression: Migraine. - Condition is Stable. - Discharge Instructions: Migraine Headache. - Prescriptions for Zofran ODT 4 mg Oral tablet,disintegrating - place 1 tablet by TRANSLINGUAL route every 8 hours As needed; 15 tablet. Tramadol 50 mg Oral Tablet - take 1 tablet by ORAL route every 8 hours as needed; 12 tablet. - Medication Reconciliation Form, Thank You Letter, Antibiotic Education, Prescription Opioid Use, Work release form form. - Follow up: Julian Grover MD; When: As needed; Reason: Recheck today's complaints, Re-evaluation by your physician. - Problem is new. - Symptoms have improved. Signatures: Antoni Ridley MD MD rn Smirch, Shelby, RN RN ss Peltier, Brian, RN RN bp Corrections: (The following items were deleted from the chart) 09:44 09:24 02/04/2020 09:24 Discharged to Home. Impression: Migraine. Condition is Stable. bp Forms are Medication Reconciliation Form, Thank You Letter, Antibiotic Education, Prescription Opioid Use. Follow up: Julian Grover; When: As needed; Reason: Recheck today's complaints, Re-evaluation by your physician. Problem is new. Symptoms have improved. rn
[2020-02-04 10:15] VITALS: TEMP 97.6
[2020-02-04 10:23] VITALS: BP 100/58; O2SAT 97
== END 2020-02-04 09:44 | disposition home or self-care (01) ==
LOC: ER 07:53
DX: G43.909 Migraine, unspecified, not intractable, without status migrainosus (principal); F31.9 Bipolar disorder, unspecified; Z88.1 Allergy status to other antibiotic agents
CPT/HCPCS: 96361; 96375; 96374; 99283; J1100; J2175; J7030; J2405

== ENCOUNTER 2020-10-01 21:49 | Emergency (ER) | payer OTHER ==
--- OUTSIDE RECORDS SUMMARY | 2020-10-01 21:57 | XMS REPORT | Continuity of Care Document ---
:1985 Author Organization [facility] t Address [address] [place] [address] Care Team Providers Name Role Phone Shaggy Camacho Attending Clinician Problems This patient has no known problems. Allergies, Adverse Reactions, Alerts Allergy Allergy Status Severity Reaction(s) Onset Inactive Treating Comm ents Source Name Type Date Date Clinician Amoxicil Drug Active Hives 2013-04 [facility] grecia-Pot Allergy 04-19 [facility] 00 Center Social History Social Habit Start Date Stop Date Quantity Comments Source Sex Assigned At [facility] Alcohol intake 2014-02-17 2014-02-17 Current [facility] es - 00:00:00 00:00:00 non-drinker of Medical Ce nter alcohol (finding) Smoking Status Start Date Stop Date Source Never smoker [facility] Medications This patient has no known medications. Procedures This patient has no known procedures. Encounters Start End Encounter Admission Attending Care Care Encounter Source Date/Time Date/Time Type Type Clinicians Facility Department ID 2020-07-27 2020-07-27 Hospital [facility] [id number] 08:59:13 23:59:[address] [facility] [id number] Surgical [id number] Specialti [id number] es 809 [place] 2020-07-27 2020-07-27 Office Kind[facility] [id number] 08:53:21 09:50:58 Visit [facility] [id number] Surgical [id number] Specialti [id number] [address] Results This patient has no known results.
--- NOTE | 2020-10-01 22:06 | ER ---
Nurse's Notes [facility] Name: Shyla Olea Age: 34 yrs Sex: Female : 1985 Arrival Date: 10/01/2020 Time: 21:53 Bed 6 Private MD: Diagnosis: Temporomandibular joint disorders Presentation: 10/01 22:00 Chief complaint: Patient states: Reports having TMJ history states stress makes it ea flare up. Pt reports TMJ pain to right side of face for the past 4 days, reports tylenol and ibuprofen are not working. Coronavirus screen: At this time, the client does not indicate any symptoms associated with coronavirus-19. Ebola Screen: No symptoms or risks identified at this time. Initial Sepsis Screen: Does the patient meet any 2 criteria? No. Patient's initial sepsis screen is negative. Does the patient have a suspected source of infection? No. Patient's initial sepsis screen is negative. Risk Assessment: Do you want to hurt yourself or someone else? Patient reports no desire to harm self or others. Onset of symptoms was October 01, 2020. 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 - Social history:: Smoking status: unknown. Screenin:02 Abuse screen: Denies threats or abuse. Nutritional screening: No deficits noted. ea Tuberculosis screening: No symptoms or risk factors identified. Fall Risk None identified. Assessment: 22:02 General: Appears in no apparent distress. uncomfortable, Behavior is calm, cooperative, jm8 appropriate for age. Pain: Complains of pain in right jaw Pain radiates to front of jaw Pain currently is 10 out of 10 on a pain scale. Quality of pain is described as aching, radiating, tender, pulsating, Pain began 4 days ago. Neuro: No deficits noted. Level of Consciousness is awake, alert, obeys commands, Oriented to person, place, time. Cardiovascular: No deficits noted. Respiratory: No deficits noted. Respiratory: Airway is patent Trachea midline Respiratory effort is even, unlabored, Respiratory pattern is regular, symmetrical. GI: No deficits noted. No signs and/or symptoms were reported involving the gastrointestinal system. : No deficits noted. No signs and/or symptoms were reported regarding the genitourinary system. EENT: No deficits noted. No signs and/or symptoms were reported regarding the EENT system. Derm: No deficits noted. No signs and/or symptoms reported regarding the dermatologic system. Musculoskeletal: Reports pain in right jaw since 4 days ago. Vital Signs: 22:00 BP 133 / 90; Pulse 79; Resp 16; Temp 98.3; Pulse Ox 99% ; Weight 91.63 kg; Height 5 ft. ea 6 in. (167.64 cm); 22:00 Body Mass Index 32.60 (91.63 kg, 167.64 cm) ea ED Course: 21:53 Patient arrived in ED. cf2 21:54 Marcin Carvajal PA is PHCP. [facility] 21:54 Antoni Ridley MD is Attending Physician. [facility] 22:00 Katherin Castro RN is Primary Nurse. ea 22:02 Triage completed. ea 22:02 Arm band placed on right wrist. Patient placed in an exam room, on a stretcher, on ea pulse oximetry. 22:03 Patient has correct armband on for positive identification. Bed in low position. Call ea light in reach. 22:09 No provider procedures requiring assistance completed. Patient did not have IV access nawaf during this emergency room visit. 22:09 No provider procedures requiring assistance completed. Patient did not have IV access ea during this emergency room visit. Administered Medications: 22:08 Drug: Aurora (HYDROcodone-acetaminophen) 10 mg-325 mg 1 tabs Route: PO; jm8 22:09 Follow up: Response: Medication administered at discharge. ea Outcome: 22:05 Discharge ordered by . sunny 22:09 Discharged to home ambulatory. Louise 22:09 Condition: good 22:09 Discharge instructions given to patient. 22:10 Patient left the ED. ea Signatures: Marcin Carvajal PA PA 8 Katherin Castro RN RN ea Frazier, Celesta cf2 Gareth Quiñonez RN RN jm8
--- NOTE | 2020-10-01 22:06 | EDPHYS ---
Physician Documentation [facility] Name: Shyla Olea Age: 34 yrs Sex: Female : 1985 Arrival Date: 10/01/2020 Time: 21:53 Bed 6 Private MD: ED Physician Antoni Ridley HPI: 10/01 22:06 This 34 yrs old Female presents to ER via Ambulatory with complaints of TMJ jr8 PAIN, FACIAL PAIN. 22:06 Patient with history of TMJ dysfunction in past. Stated that it gets worse with stress. jr8 Had just completed finals and has been more tense lately. Started to hurt a few days ago and was taking OTC medications that now are not relieving the pain . Severity of symptoms: At their worst the symptoms were moderate in the emergency department the symptoms are unchanged. The patient has experienced similar episodes in the past, a few times. The patient has not recently seen a physician. 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 - Social history:: Smoking status: unknown. ROS: 22:06 Eyes: Negative for injury, pain, redness, and discharge, ENT: Negative for injury, jr8 pain, and discharge, Neck: Negative for injury, pain, and swelling, Cardiovascular: Negative for chest pain, palpitations, and edema, Respiratory: Negative for shortness of breath, cough, wheezing, and pleuritic chest pain, Abdomen/GI: Negative for abdominal pain, nausea, vomiting, diarrhea, and constipation, Back: Negative for injury and pain, MS/Extremity: Negative for injury and deformity, Skin: Negative for injury, rash, and discoloration, Neuro: Negative for headache, weakness, numbness, tingling, and seizure. Exam: 22:06 Constitutional: This is a well developed, well nourished patient who is awake, alert, jr8 and in no acute distress. Eyes: Pupils equal round and reactive to light, extra-ocular motions intact. Lids and lashes normal. Conjunctiva and sclera are non-icteric and not injected. Cornea within normal limits. Periorbital areas with no swelling, redness, or edema. ENT: Nares patent. No nasal discharge, no septal abnormalities noted. Tympanic membranes are normal and external auditory canals are clear. Oropharynx with no redness, swelling, or masses, exudates, or evidence of obstruction, uvula midline. Mucous membranes moist. Neck: Trachea midline, no thyromegaly or masses palpated, and no cervical lymphadenopathy. Supple, full range of motion without nuchal rigidity, or vertebral point tenderness. No Meningismus. Cardiovascular: Regular rate and rhythm with a normal S1 and S2. No gallops, murmurs, or rubs. Normal PMI, no JVD. No pulse deficits. Respiratory: Lungs have equal breath sounds bilaterally, clear to auscultation and percussion. No rales, rhonchi or wheezes noted. No increased work of breathing, no retractions or nasal flaring. Skin: Warm, dry with normal turgor. Normal color with no rashes, no lesions, and no evidence of cellulitis. MS/ Extremity: Pulses equal, no cyanosis. Neurovascular intact. Full, normal range of motion. Neuro: Awake and alert, GCS 15, oriented to person, place, time, and situation. Motor strength 5/5 in all extremities. Sensory grossly intact. 22:06 Head/face: Noted is tenderness, that is moderate, of the right TMJ, of the Pain with opening and closing of jaw along with mastication and lateral movement of jaw. No erythema or swelling noted . Vital Signs: 22:00 BP 133 / 90; Pulse 79; Resp 16; Temp 98.3; Pulse Ox 99% ; Weight 91.63 kg; Height 5 ft. ea 6 in. (167.64 cm); 22:00 Body Mass Index 32.60 (91.63 kg, 167.64 cm) ea MDM: 21:57 Patient medically screened. jr8 22:03 Data reviewed: vital signs, nurses notes, and as a result, I will discharge patient. jr8 Data interpreted: Pulse oximetry: on room air is 99 %. Interpretation: normal. Counseling: I had a detailed discussion with the patient and/or guardian regarding: the historical points, exam findings, and any diagnostic results supporting the discharge/admit diagnosis, the need for outpatient follow up, a family practitioner, to return to the emergency department if symptoms worsen or persist or if there are any questions or concerns that arise at home. Administered Medications: 22:08 Drug: Gilliam (HYDROcodone-acetaminophen) 10 mg-325 mg 1 tabs Route: PO; jm8 22:09 Follow up: Response: Medication administered at discharge. jc Disposition: 22:35 Co-signature as Attending Physician, Antoni Ridley MD. rn Disposition Summary: 10/01/20 22:05 Discharge Ordered Location: Home jr Problem: new jr8 Symptoms: have improved jr8 Condition: Stable jr8 Diagnosis - Temporomandibular joint disorders jr8 Followup: jr8 - With: Private Physician - When: 1 week - Reason: Recheck today's complaints, Continuance of care, Re-evaluation by your physician Discharge Instructions: - Discharge Summary Sheet jr8 - Temporomandibular Joint Syndrome jr8 Forms: - Medication Reconciliation Form jr8 - Thank You Letter jr8 - Antibiotic Education jr8 - Prescription Opioid Use jr8 Prescriptions: - Skelaxin 800 mg Oral Tablet - take 1 tablet by ORAL route every 8 hours As needed; 30 tablet; Refills: 0, jr8 Product Selection Permitted Signatures: Antoni Ridley MD MD rn Roszak, Josh, PA PA jr8 Katherin Castro RN Gareth Shine ea, RN RN jm8
[2020-10-01 22:25] VITALS: BP 133/90; TEMP 98.3; O2SAT 99
[2020-10-01] MEDS ORDERED: HYDROCODONE/APAP 10/325 TAB ONE (22:27)
== END 2020-10-01 22:10 | disposition home or self-care (01) ==
LOC: ER 21:49
DX: M26.601 Right temporomandibular joint disorder, unspecified (principal); F31.9 Bipolar disorder, unspecified; Z88.1 Allergy status to other antibiotic agents
CPT/HCPCS: 99283

== ENCOUNTER 2021-03-17 18:56 | Emergency (ER) | payer BC, OTHER ==
--- OUTSIDE RECORDS SUMMARY | 2021-03-17 19:00 | XMS REPORT | Continuity of Care Document ---
:1985 Author Organization [facility] t Address [address] [place] [address] Care Team Providers Name Role Phone Arcelia MAX Attending Clinician Unavailable NATIVIDAD MENA Attending Clinician Unavailable Joaquin PAGE S Attending Clinician Shaggy ARGUELLES Attending Clinician Unavailable Payers Payer Name Policy Type Policy Number Effective Date Expiration Date [facility] [id number] [address] [facility] 00:00:00 Problems Condition Condition Condition Status Onset Resolution Last Treating Co mments Source Name Details Category Date Date Treatment Clinician Date Contracept Contracept Disease Active U nivers roseann roseann 2-20 ity of management [id number] History of History of Disease Active U mark anthonyers tubal tubal 2-20 ity of ligation ligation 00:00: [address] BV BV Disease Active Univers (bacterial (bacterial 2-20 it y of vaginosis) vaginosis) 00:00[id number] Vaginal Vaginal Disease Active Univers discharge discharge 2-20 ity of 00:: [address] Dysmenorrh Dysmenorrh Disease Active 2015- U nivstacie ea ea 2-20 ity of 00:00: [address] Obese Obese Disease Active 2015- Univers 2-20 ity of 00:00: [address] Bipolar Bipolar Disease Active 2016- Univers depression depression 2-20 it y of 00:00: [address] Allergies, Adverse Reactions, Alerts Allergy Allergy Status Severity Reaction(s) Onset Inactive Treating Comm ents Source Name Type Date Date Clinician Amoxicil Propensi Active Anaphylaxis 2008- U nivers grecia-Pot ty to 8-13 ity of Clavulan adverse 00:00: [place] ate reaction 00 Medical s to Branch drug AMOXICIL DRUG Active High Anaphylaxis 2008- Uni vers GRECIA-POT 8-13 ity of CLAVULAN 00:00: [place] ATE 00 Medical Branch Social History Social Habit Start Date Stop Date Quantity Comments Source Exposure to Not sure [facility] SARS-CoV-2 [facility] (event) Branch Tobacco use and 2020-07-27 2020-07-27 Never used Universit y of exposure 00:00:00 00:00:00 [facility] Alcohol intake 2020-07-27 2020-07-27 Current University 00:00:00 00:00:00 non-drinker of [facility] alcohol Branch (finding) Sex Ass[birth year] Universit y of 00:00:00 00:00:00 [facility] Smoking Status Start Date Stop Date Source Never smoker [facility] Medications Ordered Filled Start Stop Current Ordering Indication Dosage Frequency Signature Comments Components Source Medication Medication Date Date Medication? Clinician (SIG) Name Name triamcinolo 2020- No [id number] 40mg Univers ne 07-27 ity of acetonide 15:30: 14:26 [place] (KENALOG) 00 :00 Medical injection Branch 40 mg triamcinolo 2020- No [id number] 40mg 40 mg, Univers ne 07-27 Intra-alli ity of acetonide 15:30: 14:26 [place], [place] (KENALOG) 00 :00 ONCE, 1 Medical injection dose, Tue Bran h 40 mg 07/27/20 at 1030, Routine triamcinolo 2020- No [id number] 40mg Univers ne 07-27 ity of acetonide 15:30: 14:26 [place] (KENALOG) 00 :00 Medical injection Branch 40 mg triamcinolo 2020- No [id number] 40mg 40 mg, Univers ne 07-27 Intra-alli ity of acetonide 15:30: 14:26 [place], [place] (KENALOG) 00 :00 ONCE, 1 Medical injection dose, Tue Branc h 40 mg 07/27/20 at 1030, Routine divalproex 2016-0 Yes 500mg Take 500 Un jeet (DEPAKOTE) 2-18 mg by ity of 500 mg EC 20:38: mouth [place] tablet 02 every 8 Medical (eight) Branch hours. divalproex 2016-0 Yes 500mg Take 500 Un jeet (DEPAKOTE) 2-18 mg by ity of 500 mg EC 20:38: mouth [place] tablet 02 every 8 Medical (eight) Branch hours. divalproex 2016-0 Yes 500mg Take 500 Un jeet (DEPAKOTE) 2-18 mg by ity of 500 mg EC 20:38: mouth [place] tablet 02 every 8 Medical (eight) Branch hours. divalproex 2016-0 Yes 500mg Take 500 Un jeet (DEPAKOTE) 2-18 mg by ity of 500 mg EC 20:38: mouth [place] tablet 02 every 8 Medical (eight) Branch hours. metroNIDAZO Yes [id number] 500mg Take 1 Tab Univers LE (FLAGYL) 2-18 by mouth 2 it y of 500 mg 00:00: (two) [place] tablet 00 times Medical daily. Branch metroNIDAZO Yes [id number] 500mg Take 1 Tab Univers LE (FLAGYL) 2-18 by mouth 2 it y of 500 mg 00:00: (two) [place] tablet 00 times Medical daily. Branch metroNIDAZO Yes [id number] 500mg Take 1 Tab Univers LE (FLAGYL) 2-18 by mouth 2 it y of 500 mg 00:00: (two) [place] tablet 00 times Medical daily. Branch metroNIDAZO Yes [id number] 500mg Take 1 Tab Univers LE (FLAGYL) 2-18 by mouth 2 it y of 500 mg 00:00: (two) [place] tablet 00 times Medical daily. [place] Immunizations Ordered Filled Immunization Date Status Comments [facility] e Immunization Name Name TD 2011-06-14 Completed University 00:00:00 [facility] TDAP 2011-06-14 Completed University 00:00:00 [facility] TDAP 2011-06-14 Completed University 00:00:00 [facility] TDAP 2011-06-14 Completed [facility] 00:00:00 [facility] Vital Signs Vital Name Observation Time Observation Value Comments Source Systolic blood 2020-07-27 14:04:00 120 mm[Hg] [facility] [place] pressure Medical Branch Diastolic blood 2020-07-27 14:04:00 85 mm[Hg] Unive rsity of [facility] Heart rate 2020-07-27 14:04:00 82 /min Universi ty of [facility] Body height 2020-07-27 14:04:00 167.6 cm Universi ty of [facility] Body weight 2020-07-27 14:04:00 86.183 kg Universi ty of [facility] BMI 2020-07-27 14:04:00 30.67 kg/m2 Universi ty [facility] Systolic blood 2020-07-27 14:04:00 120 mm[Hg] Univer sity [facility] Diastolic blood 2020-07-27 14:04:00 85 mm[Hg] [facility] Heart rate 2020-07-27 14:04:00 82 /min Universi ty of [facility] Body height 2020-07-27 14:04:00 167.6 cm Universi ty of [place] [facility] [place] Body weight 2020-07-27 14:04:00 86.183 kg Universi ty [facility] BMI 2020-07-27 14:04:00 30.67 kg/m2 Universi ty [facility] Procedures Procedure Date / Time Performed Performing Clinician Sourc e XR SHOULDER <2 VW 2020-07-27 13:59:14 Yeimy Arguelles [facility] Encounters Start End Encounter Admission Attending Care Care Encounter Source Date/Time Date/Time Type Type Clinicians Facility Department ID 2020-12-22 2020-12-22 Outpatient R WINTER [facility] [id number] 3P-20 Univers 09:30:00 09:30:00 CORNELIUS [id number] ity o f [facility] 2020-12-15 2020-12-15 Outpatient R CARMITA MENA [facility] [id number]-20 Univers 10:00:00 10:00:00 [id number] ity [facility] 2020-12-03 2020-12-03 Outpatient CARMITA MENA [facility] [id number] 3P-20 Univers 10:30:00 10:30:00 [id number] ity [facility] 2020-12-03 2020-12-03 Outpatient R CARMITA MENA [facility] [id number] Univers 10:30:00 10:30:00 ity [facility] 2020-07-27 2020-07-27 [facility] [id number] 08:59:13 23:59:00 Encounter [facility]y [facility] [id number] Surgical [id number] Specialti [id number] es 809 [place] 2020-07-27 2020-07-27 [facility] [id number] Univers 08:59:13 23:59:00 Encounter Ye[facility]y S [facility] [id number] ity of Surgical [id number] Kayode as Specialti [id number] Me dical es 809 Branch [place] 2020-07-27 2020-07-27 Office [facility] [id number] 08:53:21 09:50:58 Visit Yeimy S Health [id number] Surgical [id number] Specialti [id number] es 198 [place] 2020-07-27 2020-07-27 Office [facility] [id number] Univers 08:53:21 09:50:58 Visit Ye[facility]y S Health [id number] it y of Surgical [id number] Kayode as Specialti [id number] Az dical es 198 [facility] 2020-07-27 2020-07-27 [facility] [id number] Univers 08:45:00 08:45:00 YEIMY ity [facility] 2020-07-27 2020-07-27 [facility] [id number] Univers 00:00:00 00:00:00 (Out) [facility] [id number] it y of Surgical [id number] Kayode as Specialti [id number] Az dical es 198 [facility] Results Test Description Test Time Test Comments Results Result Sourc e Comments XR SHOULDER <2 VW 2020-07-27 No sign of Univers ity of RIGHT 14:15:42 fracture or [place] [facility] dislocation her Branch joint spaces are well maintained
[2021-03-17 19:57] LABS: Urine Blood 3+ (Negative); Urine Glucose Negative (Negative); Urine Protein Negative (Negative); Urine Specific Gravity 1.025 (1.005-1.030)
[2021-03-17] MEDS ORDERED: KETOROLAC 30 MG/ML INJ ONE (20:02)
[2021-03-17] MEDS ORDERED: NA CHLORIDE 0.9% 1,000 ML ONE (20:03)
[2021-03-17 20:24] LABS: Basophils % 0.5 % (0-1.3); Hematocrit 40.8 % (36.0-45.0); Lymphocytes % 29.9 % (15.3-44.8); MPV 9.9 fL (7.6-11.3); RBC Red Blood Cell Count 4.63 M/uL (3.86-4.86)
[2021-03-17 20:37] LABS: Urine Specific Gravity/Preg 1.025 (1.005-1.030)
--- NOTE | 2021-03-17 20:37 | RAD REPORT ---
EXAM DESCRIPTION: [facility] Protocol - 03/17/2021 8:19 pm CLINICAL HISTORY: FLANK PAIN COMPARISON: Abdomen Pelvis W Contrast dated 02/22/2019; CT ABDOMEN PELVIS WO CONTRAST dated 013 TECHNIQUE: CT of the abdomen and pelvis was performed. All CT scans are performed using dose optimization technique as appropriate and may include automated exposure control or mA/KV adjustment according to patient size. FINDINGS: Lower chest: No acute abnormality. Small hiatal hernia. Liver: No acute abnormality or suspicious lesions. Biliary: No biliary ductal dilatation. Stomach: No significant focal abnormality. Duodenum: No significant focal abnormality. Pancreas: No significant abnormality. Spleen: No significant abnormality. Adrenal: No suspicious lesions. Kidney/ureter: No hydronephrosis. No renal calculi. Retroperitoneum: No retroperitoneal adenopathy. Vascular: No aneurysm. Bowel: No significant focal abnormality. Normal appendix. Peritoneum: No ascites or free air. Small fat containing umbilical hernia. Bladder: Grossly unremarkable. Reproductive: No adnexal masses. Bones: No acute fracture. Other: n/a IMPRESSION: No acute intra-abdominal or pelvic finding. No urinary tract calculi.
[2021-03-17 20:48] LABS: ALT/SGPT 24 U/L (12-78); AST/SGOT 12 U/L (15-37); Albumin 3.7 g/dL (3.4-5.0); Alkaline Phosphatase 58 U/L (45-117); BUN Blood Urea Nitrogen 11 mg/dL (7-18); Bicarbonate 26 mmol/L (21-32); Bilirubin Direct < 0.1 mg/dL (0-0.2); Bilirubin Total 0.3 mg/dL (0.2-1.0); Glucose Level 96 mg/dL (74-106); Lipase 106 U/L (73-393); Potassium 3.9 mmol/L (3.5-5.1); Protein, Total 7.1 g/dL (6.4-8.2); Sodium Level 141 mmol/L (136-145)
[2021-03-17 21:16] LABS: Urine Bacteria >50 /HPF (<20); Urine RBC >50 /HPF (NONE SEEN)
[2021-03-17 21:17] LABS: Urine Mucus 2+ /HPF (NONE SEEN)
[2021-03-17] MEDS ORDERED: NA CHLORIDE 0.9% 50 ML ONE (22:05)
[2021-03-17] MEDS ORDERED: CEFTRIAXONE 1000 MG/VIAL ONE (22:05)
--- NOTE | 2021-03-17 22:22 | EDPHYS ---
Physician Documentation [facility] Name: Shyla Olea Age: 35 yrs Sex: Female : 1985 Arrival Date: 03/17/2021 Time: 19:00 Bed 10 Private MD: Carlos [facility] ED Physician Julian Gonzalez HPI: 03/17 20:15 This 35 yrs old Female presents to ER via Ambulatory with complaints of Low cp Back Pain, Urinary Problem - blood. 20:15 The patient presents with pelvic pain, urinary symptoms, hematuria. cp 20:15 The patient presents with pain that is acute, with no known mechanism of injury. The cp symptoms are located in the low back. Associated signs and symptoms: Pertinent positives: abdominal pain, Pertinent negatives: chest pain, constipation, fever, headache, incontinence, numbness, urinary retention, weakness. Patient reports fever this past Sunday. History of urinary tract infections. 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 - Social history:: Smoking status: Patient denies any tobacco usage or history of. ROS: 20:20 Constitutional: Negative for body aches, chills, fever, poor PO intake. cp 20:20 Eyes: Negative for injury, pain, redness, and discharge. cp 20:20 ENT: Negative for ear pain, sore throat, difficulty swallowing, difficulty handling secretions. 20:20 Cardiovascular: Negative for chest pain, palpitations. 20:20 Respiratory: Negative for cough, shortness of breath, wheezing. 20:20 Abdomen/GI: Positive for abdominal pain, Negative for vomiting, diarrhea, constipation. 20:20 Back: Positive for pain at rest, pain with movement, of the low back area. 20:20 : Positive for pelvic pain, hematuria, Negative for vaginal bleeding, vaginal discharge. 20:20 Neuro: Negative for altered mental status, headache, weakness. 20:20 All other systems are negative. Exam: 20:25 Constitutional: The patient appears in no acute distress, alert, awake, non-toxic, well cp developed, well nourished, uncomfortable. 20:25 Head/Face: Normocephalic, atraumatic. cp 20:25 Eyes: Periorbital structures: appear normal, Conjunctiva: normal, no exudate, no injection, Lids and lashes: appear normal, bilaterally. 20:25 ENT: External ear(s): are unremarkable, Nose: is normal, Mouth: Lips: moist, Oral mucosa: moist, Posterior pharynx: Airway: no evidence of obstruction, patent. 20:25 Neck: ROM/movement: is normal, is supple, without pain, no range of motions limitations. 20:25 Chest/axilla: Inspection: normal. 20:25 Cardiovascular: Rate: tachycardic, Rhythm: regular, Edema: is not appreciated, JVD: is not appreciated. 20:25 Respiratory: the patient does not display signs of respiratory distress, Respirations: normal, no use of accessory muscles, no retractions, labored breathing, is not present, Breath sounds: are clear throughout, no decreased breath sounds. 20:25 Abdomen/GI: Inspection: abdomen appears normal, Bowel sounds: active, all quadrants, Palpation: soft, in all quadrants, mild abdominal tenderness, in the right lower quadrant and left lower quadrant, rebound tenderness, is not appreciated, involuntary guarding, is not appreciated. 20:25 Back: pain, that is moderate, of the low back area, ROM is painful, with all movement. 20:25 Neuro: Orientation: to person, place \T\ time. Mentation: is normal, Motor: moves all fours, strength is normal, Sensation: is normal. Vital Signs: 19:16 BP 122 / 93; Pulse 64; Resp 16; Temp 98.6; Pulse Ox 100% ; Weight 81.65 kg; Height 5 vg1 ft. 6 in. (167.64 cm); Pain 6/10; 19:58 BP 126 / 88; Pulse 108; Resp 20; Pulse Ox 99% on R/A; Pain 8/10; ld1 21:48 BP 130 / 84; Pulse 98; Resp 18; Pulse Ox 100% on R/A; ld1 19:16 Body Mass Index 29.05 (81.65 kg, 167.64 cm) vg1 MDM: 19:44 Patient medically screened. cp 20:00 Differential diagnosis: UTI, kidney stone, pelvic inflammatory disease, urinary tract cp infection, vaginosis. 22:20 Data reviewed: vital signs, nurses notes, lab test result(s), radiologic studies, CT cp scan. 22:20 Counseling: I had a detailed discussion with the patient and/or guardian regarding: the cp historical points, exam findings, and any diagnostic results supporting the discharge/admit diagnosis, lab results, radiology results, to return to the emergency department if symptoms worsen or persist or if there are any questions or concerns that arise at home. Response to treatment: the patient's symptoms have markedly improved after treatment, VSS. Pain improved with meds. Will discharge to home for continued monitoring. 03/17 19:56 Order name: Urine --Ancillary (enter results); Complete Time: 21:54 cs9 03/17 19:57 Order name: Urine Dipstick-Ancillary; Complete Time: 19:59 EDMS 03/17 19:58 Order name: Urine Microscopic Only; Complete Time: 21:54 ld1 03/17 21:54 Interpretation: Normal except: UWBC 5-10; URBC >50; UBACT >50; SQEPI 5-10. 03/17 19:58 Order name: Urine Culture [facility] 03/17 20:01 Order name: Basic Metabolic Panel 03/17 20:01 Order name: CBC with Diff; Complete Time: 21:54 03/17 20:01 Order name: Hepatic Function 03/17 20:01 Order name: Lipase; Complete Time: 21:54 03/17 20:01 Order name: CT Stone Protocol; Complete Time: 21:54 03/17 20:01 Order name: Basic Metabolic Panel; Complete Time: 21:54 EDRI 03/17 20:02 Order name: Liver (Hepatic) Function; Complete Time: 21:54 EDRI 03/17 19:58 Order name: Urine Dipstick-Ancillary (obtain specimen); Complete Time: 19:58 ld1 03/17 19:58 Order name: Urine Test (obtain specimen); Complete Time: 19:58 [facility] 03/17 20:01 Order name: IV Saline Lock; Complete Time: 20:14 03/17 20:01 Order name: Labs collected and sent; Complete Time: 20:14 03/17 21:55 Order name: PO challenge; Complete Time: 22:08 cp Administered Medications: 20:13 Drug: NS 0.9% 1000 ml Route: IV; Rate: 1 bolus; Site: right antecubital; ld1 20:13 Drug: Ketorolac 15 mg Route: IVP; Site: right antecubital; ld1 22:08 Drug: Rocephin - (cefTRIAXone) 1 grams Route: IVPB; Infused Over: 30 mins; Site: right ld1 antecubital; Disposition Summary: 03/17/21 22:22 Discharge Ordered Location: Home cp Problem: new cp Symptoms: have improved cp Condition: Stable cp Diagnosis - Pyelonephritis acute cp Followup: cp - With: Private Physician - When: 2 - 3 days - Reason: Recheck today's complaints Discharge Instructions: - Discharge Summary Sheet cp - Pyelonephritis, Adult cp Forms: - Medication Reconciliation Form cp - Thank You Letter cp - Antibiotic Education cp - Prescription Opioid Use cp Prescriptions: - Zofran 4 mg Oral Tablet - take 1 tablet by ORAL route every 12 hours As needed; 20 tablet; Refills: 0, cp Product Selection Permitted - Bactrim DS 800-160 mg Oral Tablet - take 1 tablet by ORAL route every 12 hours for 10 days; 20 tablet; Refills: 0, cp Product Selection Permitted - Ibuprofen 800 mg Oral Tablet - take 1 tablet by ORAL route every 8 hours As needed take with food; 30 tablet; cp Refills: 0, Product Selection Permitted Signatures: Dispatcher [employer] EDMS Candido Del Rio PA PA cp Garcia, Victoria, RN RN vg1 Liliana Marie RN RN ld1 Shyla York RN RN jh5 Corrections: (The following items were deleted from the chart) 19:58 19:19 Allergies: Augmentin; [facility] jh5 19:58 19:19 PMHx: Bipolar disorder; [facility] jh5 19:58 19:19 PMHx: Migraines; [facility] jh5 19:58 19:19 PMHx: UTI; [facility] jh5
--- NOTE | 2021-03-17 22:22 | ER ---
Nurse's Notes [facility] Name: Shyla Olea Age: 35 yrs Sex: Female : 1985 Arrival Date: 03/17/2021 Time: 19:00 Bed 10 Private MD: Feliciano Gonzalez Diagnosis: Pyelonephritis acute Presentation: 03/17 19:16 Chief complaint: Patient states: fever Sunday and Sunday with pelvic pain and now vg1 states lower to mid back pain; states is prone to UTI's and has blood in the urine; denies NV. Coronavirus screen: Vaccine status: Patient reports receiving the 2nd dose of the covid vaccine. Client denies travel out of the [place] in the last 14 days. Ebola Screen: Patient negative for fever greater than or equal to 101.5 degrees Fahrenheit, and additional compatible Ebola Virus Disease symptoms. Initial Sepsis Screen: Does the patient meet any 2 criteria? No. Patient's initial sepsis screen is negative. Does the patient have a suspected source of infection? No. Patient's initial sepsis screen is negative. Risk Assessment: Do you want to hurt yourself or someone else? Patient reports no desire to harm self or others. Onset of symptoms was March 14, 2021. 19:16 Method Of Arrival: Ambulatory 1 19:16 Acuity: BILL 3 vg1 Triage Assessment: 19:19 General: Appears in no apparent distress. comfortable, Behavior is calm, cooperative. vg1 Pain: Complains of pain in back and pelvis Pain currently is 6 out of 10 on a pain scale. : Reports blood in urine. 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 - Social history:: Smoking status: Patient denies any tobacco usage or history of. Screenin:57 Abuse screen: Denies threats or abuse. Denies injuries from another. Nutritional jh5 screening: No deficits noted. Tuberculosis screening: No symptoms or risk factors identified. Fall Risk None identified. Assessment: 19:58 General: Appears in no apparent distress. comfortable, Behavior is calm, cooperative, ld1 appropriate for age. Pain: Complains of pain in low back area Pain does not radiate. Pain currently is 8 out of 10 on a pain scale. Quality of pain is described as throbbing, Pain began gradually, Is continuous. Neuro: Level of Consciousness is awake, alert, obeys commands, Oriented to person, place, time, situation, Appropriate for age. Cardiovascular: Capillary refill < 3 seconds Patient's skin is warm and dry. Respiratory: Airway is patent Respiratory effort is even, unlabored, Respiratory pattern is regular, symmetrical. GI: Abdomen is flat, non-distended. : Reports pain in bilateral flank(s). EENT: No signs and/or symptoms were reported regarding the EENT system. Derm: No signs and/or symptoms reported regarding the dermatologic system. Musculoskeletal: No signs and/or symptoms reported regarding the musculoskeletal system. 21:48 Reassessment: Patient appears in no apparent distress at this time. No changes from ld1 previously documented assessment. Patient and/or family updated on plan of care and expected duration. Pain level reassessed. Patient is alert, oriented x 3, equal unlabored respirations, skin warm/dry/pink. Vital Signs: 19:16 BP 122 / 93; Pulse 64; Resp 16; Temp 98.6; Pulse Ox 100% ; Weight 81.65 kg; Height 5 vg1 ft. 6 in. (167.64 cm); Pain 6/10; 19:58 BP 126 / 88; Pulse 108; Resp 20; Pulse Ox 99% on R/A; Pain 8/10; ld1 21:48 BP 130 / 84; Pulse 98; Resp 18; Pulse Ox 100% on R/A; ld1 19:16 Body Mass Index 29.05 (81.65 kg, 167.64 cm) vg1 ED Course: 19:00 Patient arrived in ED. as 19:01 Feliciano Gonzalez DO is Private Physician. as 19:19 Triage completed. vg1 19:19 Arm band placed on. vg1 19:42 Candido Del Rio PA is PHCP. cp 19:42 Julian Gonzalez MD is Attending Physician. cp 19:52 Shyla York RN is Primary Nurse. 5 19:58 Patient has correct armband on for positive identification. Bed in low position. [facility] light in reach. Side rails up X 1. 19:58 No provider procedures requiring assistance completed. ld1 20:14 Inserted saline lock: 20 gauge in right antecubital area, using aseptic technique. ld1 Blood collected. 20:18 CT Stone Protocol In Process Unspecified. EDMS 22:42 IV discontinued, intact, bleeding controlled, No redness/swelling at site. ld1 Administered Medications: 20:13 Drug: NS 0.9% 1000 ml Route: IV; Rate: 1 bolus; Site: right antecubital; ld1 20:13 Drug: Ketorolac 15 mg Route: IVP; Site: right antecubital; ld1 22:08 Drug: Rocephin - (cefTRIAXone) 1 grams Route: IVPB; Infused Over: 30 mins; Site: right ld1 antecubital; Outcome: 22:22 Discharge ordered by MD. cp 22:42 Discharged to home ambulatory. ld1 22:42 Condition: stable 22:42 Discharge instructions given to patient, Instructed on discharge instructions, follow up and referral plans. Demonstrated understanding of instructions, follow-up care. 22:42 Patient left the ED. ld1 Signatures: Dispatcher [employer] EDMS Amrita Leon Corey, PA PA cp Garcia, Victoria, RN RN [facility] Liliana Marie RN RN [facility] Shyla York RN RN jh5 Corrections: (The following items were deleted from the chart) 19:58 19:19 Allergies: Augmentin; [place] [id number] 19:58 19:19 PMHx: Bipolar disorder; [place] [id number] 19:58 19:19 PMHx: Migraines; [place] [id number] 19:58 19:19 PMHx: UTI; [place] [id number]
[2021-03-17 23:16] VITALS: TEMP 98.6
[2021-03-17 23:22] VITALS: BP 130/84; O2SAT 100
== END 2021-03-17 22:42 | disposition home or self-care (01) ==
LOC: ER 18:56
DX: N10 Acute pyelonephritis (principal); Z88.1 Allergy status to other antibiotic agents
CPT/HCPCS: 87088; 85025; 87086; 80048; 36415; 81025; 80076; 83690; 76377; 74176; 96375; 96374; 99284; J7030; 81003; 81015